=== PATIENT | female | born 1950 | race Caucasian/White ===

== ENCOUNTER 2024-08-31 05:24 | Day surgery (SDC) | payer MEDICARE, OTHER ==
[2024-08-31] MEDS ORDERED: Ketamine 500 mg/10 ML MDV ONE (05:25)
[2024-08-31] MEDS ORDERED: dexmedeTOMIDine HCl 200 MCG/2 ML SDV IV ONE (05:25)
[2024-08-31] MEDS ORDERED: dexmedeTOMIDine HCl 200 MCG/2 ML SDV ONE (05:25)
[2024-08-31] MEDS ORDERED: Lactated Ringers 1,000 ML IV ONE (05:25)
[2024-08-31] MEDS ORDERED: Propofol 200 MG/20 ML SDV ONE ×2 (05:25→08:14)
[2024-08-31] MEDS ORDERED: Propofol 200 MG/20 ML SDV IV ONE (05:25)
[2024-08-31] MEDS: Lactated Ringers 1,000 ML IV SCH (05:47)
== END 2024-08-31 08:05 | disposition home or self-care (01) ==
LOC: DL.ENDO 05:24
PROVIDERS: ATTEND Internal Medicine Gastroenterology
DX: Z12.11 Encounter for screening for malignant neoplasm of colon (principal); K57.30 Diverticulosis of large intestine without perforation or abscess without bleeding; E78.5 Hyperlipidemia, unspecified
CPT/HCPCS: 88305; J2704; J7120